=== PATIENT | male | born 1990 | race Hispanic/Latino ===

== ENCOUNTER 2018-11-13 00:41 | Emergency (ER) | payer OTHER ==
[2018-11-13] MEDS ORDERED: Acetaminophen 500 MG TAB ONE (02:08)
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
== END 2018-11-13 02:19 ==
LOC: NAV ERS 00:41
DX: S62.335A Displaced fracture of neck of fourth metacarpal bone, left hand, initial encounter for closed fracture (principal); S00.03XA Contusion of scalp, initial encounter; S00.83XA Contusion of other part of head, initial encounter; S05.11XA Contusion of eyeball and orbital tissues, right eye, initial encounter; Y04.0XXA Assault by unarmed brawl or fight, initial encounter
CPT/HCPCS: 26600; 70450